=== PATIENT | male | born 1980 | race African-American/Black ===

== ENCOUNTER 2019-09-17 17:16 | Emergency (ER) | payer OTHER ==
[2019-09-17 17:58] VITALS: BP 128/84
--- NOTE | 2019-09-17 18:00 | UC ---
Respiratory Complaint HPI - HPI Summary HPI Summary: Patient complains of about one week of respiratory symptoms including cough, congestion, sore throat. Has had intermittent fever up to 101.7. No flu shot this season. Also c/o mild ST, [place] and body aches. No known exposure to COVID-19 hpwever pt works at [employer] so it is a possibility. States he actually feels better today. - History of Current Complaint Chief Complaint: UCRespiratory Stated Complaint: FEVER,HEADACHE,COUGH Time Seen by Provider: 09/17/19 17:33 Hx Obtained From: Patient Onset/Duration: Gradual Onset, Lasting Days, Still Present Timing: Constant Severity Initially: Moderate Severity Currently: Moderate Pain Intensity: 2 Pain Scale Used: 0-10 Numeric Character: Cough: Nonproductive Aggravating Factors: Nothing Alleviating Factors: Nothing Associated Signs And Symptoms: Positive: Fever, Chills, URI, Nasal Congestion. Negative: Dyspnea, Wheezing - Allergies/Home Medications Allergies/Adverse Reactions: Allergies Allergy/AdvReac Type Severity Reaction Status Date / Time Penicillins Allergy Unknown Verified 09/17/19 17:31 Reaction Details Home Medications: Home Medications Acetaminophen TAB* [Tylenol TAB*] 1,000 mg PO Q6H 08/21/15 [History Confirmed ] Fluticasone NASAL SPRAY 50MCG* [Flonase NASAL SPRAY 50MCG*] 2 spray BOTH NARES DAILY #1 btl 08/21/15 [Rx Confirmed 09/17/19] Sildenafil Citrate 100 mg PO ONCE PRN 09/17/19 [History Confirmed 09/17/19] PMH/Surg Hx/FS Hx/Imm Hx Previously Healthy: Yes - Surgical History Surgical History: Yes Surgery Procedure, Year, and Place: appe. t&a - Family History Known Family History: Positive: None - Social History Alcohol Use: Daily Substance Use Type: None Smoking Status (MU): Light Every Day Tobacco Smoker Amount Used/How Often: 7 daily - Immunization History Most Recent Influenza Vaccination: no Review of Systems All Other Systems Reviewed And Are Negative: Yes Constitutional: Positive: Fever, Chills, Fatigue Eyes: Positive: Negative ENT: Positive: Sore Throat, Nasal Discharge Respiratory: Positive: Cough. Negative: Shortness Of Breath Cardiovascular: Positive: Negative Gastrointestinal: Positive: Nausea Musculoskeletal: Positive: Myalgia Neurological/Mental Status: Positive: Headache Physical Exam Triage Information Reviewed: Yes Appearance: Well-Appearing, No Pain Distress, Well-Nourished Vital Signs: Initial Vital Signs Temp 98.3 F 09/17/19 17:57 Pulse 66 09/17/19 17:57 Resp 18 09/17/19 17:57 BP 128/84 09/17/19 17:57 Pulse Ox 100 09/17/19 17:57 Laboratory Tests 09/17/19 09/17/19 17:56 17:58 Influenza A (Rapid) Negative Influenza B (Rapid) Negative Group A Strep Rapid Negative Vital Signs Reviewed: Yes Eyes: Positive: Conjunctiva Clear ENT: Positive: Hearing grossly normal, Pharyngeal erythema, TMs normal Neck: Positive: Supple, Nontender, No Lymphadenopathy Respiratory Exam: Normal Cardiovascular Exam: Normal Abdomen Description: Positive: Soft Musculoskeletal: Positive: No Edema Neurological: Positive: Alert Psychological: Positive: Age Appropriate Behavior Skin: Negative: Rashes Respiratory Course/Dx - Course Course Of Treatment: FLU NEGATIVE. STREP NEGATIVE. GIVEN RESPIRATORY SYMPTOMS, TESTING FOR COVID19 DONE TODAY. PATIENT BEING DISCHARGED HOME TO SELF-ISOLATION AND WILL BE CONTACTED BY HD WITH RESULTS. CONTACT/DROPLET PRECAUTIONS TAKEN BY MYSELF DURING ENCOUNTER. TRIAGE DONE OVER THE PHONE BY NURSING. VITAL SIGNS AND SWABS COLLECTED BY MYSELF. - Differential Dx/Diagnosis Provider Diagnosis: Upper respiratory infection Discharge ED - Sign-Out/Discharge Documenting (check all that apply): Patient Departure All imaging exams completed and their final reports reviewed: No Studies - Discharge Plan Condition: Stable Disposition: HOME Patient Education Materials: Upper Respiratory Infection (ED) Forms: COVID-19 Tested & Isolation Referrals: Kelsi Zheng MD [Primary Care Provider] - If Needed Additional Instructions: FLU NEGATIVE. STREP NEGATIVE. YOUR SYMPTOMS ARE LIKELY VIRALLY MEDIATED AND SHOULD RESOLVE ON THEIR OWN WITH TIME. NO INDICATION FOR ANTIBIOTICS AT PRESENT. GET REST AND STAY WELL HYDRATED. GIVEN YOUR RESPIRATORY SYMPTOMS TESTING FOR COVID-19 COMPLETED TODAY. YOU SHOULD EXPECT RESULTS IN 3-7 DAYS. YOU ARE BEING DISCHARGED TO SELF-ISOLATION AT HOME. THE HEALTH DEPARTMENT WILL BE FOLLOWING UP WITH YOU. CALL 911 IF YOU DEVELOP WORSENING RESPIRATORY DISTRESS, FEVER, PAIN OR ANY OTHER CONCERNING SYMPTOMS. - Billing Disposition and Condition Condition: STABLE Disposition: Home
[2019-09-17 18:09] LABS: Influenza A Molecular Negative (Negative); Influenza B Molecular Negative (Negative)
== END 2019-09-17 18:23 | disposition home or self-care (01) ==
LOC: UCEAST 17:16
DX: J06.9 Acute upper respiratory infection, unspecified (principal); Z20.828 Contact with and (suspected) exposure to other viral communicable diseases; Z88.0 Allergy status to penicillin; F17.200 Nicotine dependence, unspecified, uncomplicated
CPT/HCPCS: 87635; 87651; 99211; G0463